=== PATIENT | male | born 2000 | race Caucasian/White ===

== ENCOUNTER 2024-04-12 09:52 | Emergency (ER) | payer OTHER ==
--- NOTE | 2024-04-12 11:31 | XRAY Report ---
PROCEDURE: Chest 1V INDICATIONS: cough, congestion TECHNIQUE: One view of the chest was acquired. COMPARISON: None. FINDINGS: Surgical changes and devices: None. Lungs and pleura: Low lung volumes. No dense airspace disease or pleural effusion Mediastinum: Normal heart size Bones and chest wall: Unremarkable IMPRESSION: Low lung volumes. No dense airspace disease or pleural effusion on this limited single view study. Reviewed by: Lalito Cardoza MD on 04/12/2024 11:30 AM PDT Approved by: Lalito Cardoza MD on 04/12/2024 11:30 AM PDT Station ID: [id number]
[2024-04-12 11:36] LABS: BASOPHILS # (AUTO) 0.1 10^3/uL (0.0-0.1); BASOPHILS % (AUTO) 0.7 %; EOSINOPHILS # (AUTO) 0.2 10^3/uL (0.0-0.7); EOSINOPHILS % (AUTO) 2.2 %; HGB - HEMOGLOBIN 15.5 g/dL (14.0-18.0); LYMPHOCYTES % (AUTO) 27.4 %; MEAN CORPUSCULAR HEMOGLOBIN 30.6 pg (27.0-31.0); MEAN CORPUSCULAR HGB CONC 34.4 g/dL (32.0-36.0); MEAN CORPUSCULAR VOLUME 88.8 fL (80.0-94.0); MEAN PLATELET VOLUME 9.5 fL (7.4-11.4); MONOCYTES # (AUTO) 0.8 10^3/uL (0.0-1.0); MONOCYTES % (AUTO) 10.5 %; NEUTROPHILS # (AUTO) 4.3 10^3/uL (1.5-6.6); NEUTROPHILS % (AUTO) 58.8 %; PLT - PLATELET COUNT 263 10^3/uL (130-450); RED BLOOD COUNT 5.07 10^6/uL (4.70-6.10); WHITE BLOOD COUNT 7.2 x10^3/uL (4.8-10.8)
[2024-04-12 11:54] LABS: ALBUMIN 4.2 g/dL (3.2-5.5); ALBUMIN/GLOBULIN RATIO 1.6 (1.0-2.2); BILIRUBIN,TOTAL 0.6 mg/dL (0.2-1.0); CALCIUM 9.1 mg/dL (8.5-10.3); CREATININE 0.9 mg/dL (0.6-1.3); MAGNESIUM 1.8 mg/dL (1.7-2.3); POTASSIUM 4.1 mmol/L (3.5-4.5); TOTAL PROTEIN 6.9 g/dL (6.4-8.9)
[2024-04-12 12:24] LABS: CORONAVIRUS 229E-RESP PCR NOT DETECTED; CORONAVIRUS HKU1-RESP PCR NOT DETECTED; CORONAVIRUS NL63-RESP PCR NOT DETECTED; CORONAVIRUS OC43-RESP PCR NOT DETECTED; HUMAN METAPNEUMOVIRUS NOT DETECTED; INFLUENZA A- RESP PCR PANEL NOT DETECTED; INFLUENZA B - RESP PCR PANEL NOT DETECTED; PARAINFLUENZA VIRUS 1 NOT DETECTED; PARAINFLUENZA VIRUS 2 NOT DETECTED; PARAINFLUENZA VIRUS 3 NOT DETECTED; RHINOVIRUS/ENTEROVIRUS DETECTED; SARS-CoV-2 -RESP PCR PANEL NOT DETECTED
[2024-04-12 12:25] LABS: B. PARAPERTUSSIS- RESP PCR PAN NOT DETECTED; B. PERTUSSIS- RESP PCR PANEL NOT DETECTED; C. PNEUMONIAE- RESP PCR PANEL NOT DETECTED; M. PNEUMONIAE- RESP PCR PANEL NOT DETECTED; PARAINFLUENZA VIRUS 4 NOT DETECTED; RSV- RESP PCR PANEL NOT DETECTED
--- NOTE | 2024-04-12 13:09 | ED Physician Documentation ---
History of Present Illness - Stated complaint Stated Complaint: V - Chief complaint Chief Complaint: Trauma Abd - History obtained from History obtained from: Patient - Additonal information Additional information: Patient is a 23-year-old male no significant past medical history presents to the emergency department with cough congestion he notes symptoms have been going on for the past 3 days. He notes overnight he developed persistent nausea vomiting and was unable to keep anything down until he had some coffee this morning. He did not take any medications for his symptoms other than Mucinex over the last 2 days. He denies any recent sick contacts. He denies any fevers or chills. He denies any vomiting in the days prior to the symptoms. He denies any epigastric pain or chest pain associated with his symptoms. He notes frothy green sputum associated with persistent cough. He did receive his flu shot this year. Patient denies taking any medications regularly at home no other sign ificant past medical history. PD PAST MEDICAL HISTORY - Present Medications Home Medications: Ambulatory Orders Medication Instructions Recorded Confirmed Benzonatate [Tessalon] 100 mg PO TID 10 Days #30 cap 04/12/24 Ondansetron Odt [Zofran] 4 mg TL Q6H PRN #10 tablet 04/12/24 - Allergies Allergies/Adverse Reactions: Allergies Allergy/AdvReac Type Severity Reaction Status Date / Time No Known Drug Allergies Allergy Verified 04/12/24 10:23 - Social History Does the pt smoke?: No Smoking Status: Never smoker Does the pt drink ETOH?: Yes Does the pt have substance abuse?: No - Immunizations Immunizations are current?: Yes - POLST Patient has POLST: No PD ED PE NORMAL - Vitals Vital signs reviewed: Yes - General General: Alert and oriented X 3 - HEENT HEENT: PERRL, Ears normal, Moist mucous membranes, Pharynx benign, Other (No significant oropharyngeal swelling or exudates appreciated.) - Neck Neck: Supple, no meningeal sign, No adenopathy - Cardiac Cardiac: RRR, No murmur, No gallop, No rub - Respiratory Respiratory: No respiratory distress, Clear bilaterally - Abdomen Abdomen: Normal bowel sounds, Non tender, Non distended - Back Back: No CVA TTP - Derm Derm: Normal color, No rash - Extremities Extremities: No deformity, No tenderness to palpate, No edema - Neuro Neuro: Alert and oriented X 3 Eye Opening: Spontaneous Motor: Obeys Commands Verbal: Oriented GCS Score: 15 - Psych Psych: Normal mood, Normal affect Results - Vitals Vitals: Vital Signs - 24 hr 04/12/24 10:19 Temperature 36.6 C Heart Rate 93 Respiratory 18 Rate Blood Pressure 141/81 H O2 Saturation 97 Oxygen O2 Source Room air - Labs Labs: Laboratory Tests 04/12/24 04/12/24 04/12/24 11:24 11:24 11:25 WBC 7.2 RBC 5.07 Hgb 15.5 Hct 45.0 MCV 88.8 MCH 30.6 MCHC 34.4 RDW 12.0 Plt Count 263 MPV 9.5 Neut # (Auto) 4.3 Lymph # (Auto) 2.0 [place] # (Auto) 0.8 Eos # (Auto) 0.2 Baso # (Auto) 0.1 Absolute Nucleated RBC 0.00 Nucleated RBC % 0.0 Sodium 138 Potassium 4.1 Chloride 106 Carbon Dioxide 28 Anion Gap 4.0 L BUN 14 Creatinine 0.9 Estimated GFR (MDRD) 105 Glucose 101 Calcium 9.1 Magnesium 1.8 Total Bilirubin 0.6 AST 23 ALT 48 Alkaline Phosphatase 68 Total Protein 6.9 Albumin 4.2 Globulin 2.7 Albumin/Globulin Ratio 1.6 Lipase 15 Nasal Adenovirus (PCR) NOT DETECTED Nasal B. parapertussis DNA (PCR) NOT DETECTED Nasal Coronavir 229E PCR NOT DETECTED Nasal Coronavir HKU1 PCR NOT DETECTED Nasal Coronavir NL63 PCR NOT DETECTED Nasal Coronavir OC43 PCR NOT DETECTED Nasal Enterovir/Rhinovir PCR DETECTED A Nasal Influenza B PCR NOT DETECTED Nasal Influenza A PCR NOT DETECTED Nasal Parainfluen 1 PCR NOT DETECTED Nasal Parainfluen 2 PCR NOT DETECTED Nasal Parainfluen 3 PCR NOT DETECTED Nasal Parainfluen 4 PCR NOT DETECTED Nasal RSV (PCR) NOT DETECTED Nasal B.pertussis DNA PCR NOT DETECTED Nasal C.pneumoniae (PCR) NOT DETECTED Anatoliy Human Metapneumo PCR NOT DETECTED Nasal M.pneumoniae (PCR) NOT DETECTED Nasal SARS-CoV-2 (PCR) NOT DETECTED - Rads (name of study) CXR Relevant Findings:: EMP independent interpretation of test PD Medical Decision Making - ED course Complexity details: reviewed old records, reviewed results, re-evaluated patient ED course: Patient is a 23-year-old male presenting to the emergency department with flulike symptoms including cough congestion sore throat. Symptoms have been going on for the past 3 days. Patient today developed nausea and vomiting. Patient denies any fevers. No recent sick contacts. Vital stable on arrival. He is nontachycardic afebrile drinking and eating in room on examination. Patient appears in no acute distress. Clear breath sounds on auscultation of the lungs and normal cardiac sounds on auscultation with normal rhythm and rate on examination. No abdominal tenderness rebound or guarding noted on physical exam. Patient given Zofran here in the emergency department his nausea symptoms resolved and he has been eating and drinking since he has been here in the ED. Patient CBC shows no significant leukocytosis hemoglobin is stable and lipase is within normal range. Chest x-ray obtained given persistent cough shows no signs of consolidations or opacities on examination. Patient's respiratory viral panel returned positive for rhinovirus. Patient given Tessalon Perles and Zofran for symptoms at home and Instructed to return to the emergency department with any worsening chest pain shortness of breath nausea vomiting despite Zofran or any persistent fevers despite Tylenol and ibuprofen. Patient understands and is agreeable with this plan. Strict return precautions given for patient. Departure - Departure Disposition: Home, Self Care Clinical Impression: Rhinovirus infection Condition: Good Instructions: ED Viral Syndrome Prescriptions: Benzonatate [Tessalon] 100 mg PO TID 10 Days #30 cap Ondansetron Odt [Zofran] 4 mg TL Q6H PRN #10 tablet PRN Reason: Nausea / Vomiting Comments: You were seen here in the emergency department with your Cough congestion your workup here in the emergency department showed rhinovirus. You can take Tylenol ibuprofen at home for your symptoms use a humidifier in your room to help with persistent cough. Sent Zofran to help with nausea vomiting at home and I have sent Tessalon Perles to help with your persistent cough. Return to the emergency department with any high fevers that are persistent despite Tylenol and ibuprofen any persistent nausea vomiting despite Zofran use or any other new or worsening symptoms. Please follow-up with your PCP in 1 week to ensure resolution of symptoms. Forms: PCP List
[2024-04-12 13:24] VITALS: BP 130/88; O2SAT 98
== END 2024-04-12 13:20 | disposition home or self-care (01) ==
LOC: ED 09:52
DX: B34.8 Other viral infections of unspecified site (principal)
CPT/HCPCS: 36415; 80053; 83690; 83735; 85025; 87633; 99284